=== PATIENT | male | born 1985 | race Caucasian/White ===

== ENCOUNTER 2024-12-12 20:02 | Emergency (ER) | payer OTHER ==
[~2024-12-12] VITALS: Ht 299.7 cm; Wt 101.3 kg
[2024-12-12] MEDS ORDERED: PRAZOSIN HCL2 MG (20:08)
[2024-12-12] MEDS ORDERED: ETOMIDATE 40 MG/20 ML VIAL IV ONE (20:15)
[2024-12-12] MEDS ORDERED: fentaNYL citrate 100 MCG/2 ML VIAL IV ONE (20:15)
[2024-12-12 20:19] LABS: BASOPHILS 0.9 % (0-2); HEMATOCRIT 40.4 % (35.0-50.0); HEMOGLOBIN 14.3 g/dL (12.0-18.0); LYMPHOCYTES 29.5 % (24-44); MCHC 35.3 g/dl (30-36); MCV 84.9 fl (81-99); MONOCYTES 6.2 % (0-12); NEUTROPHILS 61.4 % (39-80); PLATELET COUNT 212 K/uL (140-440); RBC 4.76 M/ul (4.3-5.7)
[2024-12-12 20:34] LABS: ALBUMIN 3.7 g/dL (3.4-5.0); ALBUMIN/GLOBULIN RATIO 0.93 (1.1-2.4); BILIRUBIN, TOTAL 0.3 mg/dL (0.2-1.0); BUN/CREATININE RATIO 16.09 (6.0-28.6); CALCIUM 8.9 mg/dL (8.5-10.1); CREATININE, SERUM 0.87 mg/dL (0.70-1.30); PROTEIN, TOTAL 7.7 g/dL (6.4-8.2)
[2024-12-12] MEDS ORDERED: ANUSOL-HC30 GM PR (20:47)
[2024-12-12] MEDS ORDERED: [UNRECOGNIZED DRUG - OTHER] PR (20:47)
[2024-12-12] MEDS ORDERED: KETOROLAC TROMETHAMINE 30 MG/ML VIAL IV ONE (21:00)
[2024-12-12 21:22] VITALS: BP 127/90
== END 2024-12-12 21:25 | disposition home or self-care (01) ==
LOC: ED 20:02
PROVIDERS: Family Medicine
DX: K64.5 Perianal venous thrombosis (principal); Z79.899 Other long term (current) drug therapy
CPT/HCPCS: 36415; 80053; 85025; J1885; J3010